=== PATIENT | female | born 1955 | race Caucasian/White ===

== ENCOUNTER 2018-10-08 14:35 | Emergency (ER) | payer BC, OTHER ==
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
[2018-10-08 18:49] VITALS: BP 165/107
== END 2018-10-08 18:44 | disposition home or self-care (01) ==
LOC: ED 14:35
DX: S00.83XA Contusion of other part of head, initial encounter (principal); W50.0XXA Accidental hit or strike by another person, initial encounter; Y92.9 Unspecified place or not applicable; V49.50XA Passenger injured in collision with unspecified motor vehicles in traffic accident, initial encounter; Z87.898 Personal history of other specified conditions; Z88.2 Allergy status to sulfonamides
CPT/HCPCS: 70450; 70486; 99282

== ENCOUNTER 2018-10-22 13:19 | Emergency (ER) | payer OTHER ==
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
[2018-10-22 13:35] VITALS: BP 146/93
== END 2018-10-22 13:50 | disposition home or self-care (01) ==
LOC: UCEAST 13:19
DX: S00.83XD Contusion of other part of head, subsequent encounter (principal); V49.9XXD Car occupant (driver) (passenger) injured in unspecified traffic accident, subsequent encounter; Z88.1 Allergy status to other antibiotic agents
CPT/HCPCS: 99211; G0463

== ENCOUNTER 2018-12-12 12:58 | Emergency (ER) | payer OTHER ==
[2018-12-12 13:12] VITALS: BP 136/80
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
== END 2018-12-12 13:33 | disposition home or self-care (01) ==
LOC: UCEAST 12:58
DX: S00.83XD Contusion of other part of head, subsequent encounter (principal); X58.XXXD Exposure to other specified factors, subsequent encounter; Z88.2 Allergy status to sulfonamides
CPT/HCPCS: 99211; G0463